=== PATIENT | male | born 1960 | race Caucasian/White ===

== ENCOUNTER 2017-04-15 11:02 | Observation (INO) | payer BC ==
[2017-04-15 12:11] LABS: C Reactive Protein 1.88 mg/L (< 5.00); Magnesium 2.2 mg/dL (1.9-2.7)
--- NOTE | 2017-04-15 12:42 | RAD ---
Indication: Chest pain. Single frontal view of the chest performed at 1159 hours was reviewed. No prior study is available for comparison. No mediastinal shift is noted. Heart is of normal size and configuration. Lung corona appear clear. IMPRESSION: NO ACTIVE CARDIOPULMONARY DISEASE IS NOTED.
[2017-04-15 12:56] LABS: Troponin I 0.01 ng/mL (<0.04)
[2017-04-15] MEDS ORDERED: Aspirin Low Dose CHEW TAB* 81 MG PO ONE (13:01)
[2017-04-15 13:05] LABS: Red Cell Distribution Width 13 % (10.5-15)
[2017-04-15 13:06] LABS: BUN/Creatinine Ratio 20.3 (8-20); Calcium 9.1 mg/dL (8.6-10.3); EGFR African American 77.7 (>60); EGFR Non-African American 60.4 (>60); Globulin 2.7 g/dL (2-4); Potassium 3.9 mmol/L (3.5-5.0); Total Bilirubin 0.6 mg/dL (0.2-1.0); Total Protein 6.7 g/dL (6.4-8.9)
[2017-04-15 13:09] LABS: Comments Flag Yes; Hematocrit 44 % (42-52); Hemoglobin 14.9 g/dl (14.0-18.0); Mean Corpuscular HGB Conc 34 g/dl (31-36); Mean Corpuscular Hemoglobin 30 pg (27-31); Mean Corpuscular Volume 88 fL (80-94); Mean Platelet Volume 9 um3 (7.4-10.4); Red Blood Count 4.95 10^6/ul (4.0-5.4); White Blood Count 10.2 10^3/ul (3.5-10.8)
[2017-04-15] MEDS ORDERED: Nitroglycerin TAB 0.4 MG* 0.4 MG TAB SL ONE (15:39)
[2017-04-15] MEDS ORDERED: Ondansetron INJ* 2 MG/ML VIAL IV PRN (17:18)
[2017-04-15] MEDS ORDERED: Acetaminophen TAB* 325 MG PO PRN (17:18)
[2017-04-15] MEDS ORDERED: Enoxaparin(*) 40 MG/0.4 ML SYR SUBCUT SCH (18:00)
--- NOTE | 2017-04-15 18:37 | ED ---
John Hays Benjamin, scribed for Colby Yu MD on 04/15/17 at 1136 . HPI Chest Pain - HPI Summary HPI Summary: 57yo male c/o mid sternal CP that started 2 hours ago. Pt woke up today around 330am and states CP started around 8-9am. Pain was 5/10 at its worse, but now its 2/10. Pt denies SOB, N/V, fever, or any recent illness. Hx of HLD, but denies GERD and heartburn. FHx of CAD. Pt states deep breath makes the CP better. Pt has biked for hours on Friday and Friday. - History of Current Complaint Chief Complaint: EDChestPainROMI Time Seen by Provider: 04/15/17 11:27 Hx Obtained From: Patient Onset/Duration: Started Hours Ago, Still Present Timing: Constant Initial Severity: Moderate - 5 Current Severity: Mild - 2 Pain Intensity: 2 Pain Scale Used: 0-10 Numeric Chest Pain Location: Mid Sternal Chest Pain Radiates: No Aggravating Factor(s): Nothing Alleviating Factor(s): Other: - deep breath Associated Signs and Symptoms: Positive: Negative. Negative: Numbness, Tingling , Shortness of Breath, Fever, Chills, Nausea, Cough, Vomiting - Allergy/Home Medications Allergies/Adverse Reactions: Allergies Allergy/AdvReac Type Severity Reaction Status Date / Time No Known Allergies Allergy Verified 07/11/13 13:08 PMH/Surg Hx/FS Hx/Imm Hx Endocrine/Hematology History: Denies: Hx Diabetes, Hx Thyroid Disease Cardiovascular History: Reports: Hx Hypercholesterolemia Denies: Hx Hypertension Respiratory History: Denies: Hx Asthma, Hx Chronic Obstructive Pulmonary Disease (COPD) GI History: Denies: Hx Ulcer Infectious Disease History: No Infectious Disease History: Denies: Hx Clostridium Difficile, Hx Hepatitis, Hx Human Immunodeficiency Virus (HIV), Hx of Known/Suspected MRSA, Hx Shingles, Hx Tuberculosis, Traveled Outside the [place] in Last 30 Days - Family History Known Family History: Negative: Cardiac Disease - Social History Occupation: Employed Full-time Lives: With Family Alcohol Use: Rare Substance Use Type: Reports: None Review of Systems Constitutional: Negative Negative: Fever Eyes: Negative ENT: Negative Positive: Chest Pain. Negative: Palpitations Respiratory: Negative Negative: Shortness Of Breath Gastrointestinal: Negative Negative: Abdominal Pain, Vomiting, Diarrhea, Nausea Genitourinary: Negative Musculoskeletal: Negative Skin: Negative Neurological: Negative Psychological: Normal All Other Systems Reviewed And Are Negative: Yes Physical Exam - Summary Physical Exam Summary: General: well-appearing, no pain distress Skin: warm, color reflects adequate perfusion, dry Head: normal Eyes: EOMI, RAZA ENT: normal Neck: supple, nontender Respiratory: CTA, breath sounds present Cardiovascular: RRR Abdomen: soft, nontender Bowel: present Musculoskeletal: normal, strength/ROM intact Neurological: normal, sensory/motor intact, A&O x3 Psychological: affect/mood appropriate Triage Information Reviewed: Yes Vital Signs On Initial Exam: Initial Vitals Temp Pulse Resp BP Pulse Ox 96.1 F 69 16 168/97 100 04/15/17 11:05 04/15/17 11:05 04/15/17 11:05 04/15/17 11:05 04/15/17 11:05 Vital Signs Reviewed: Yes Diagnostics - Vital Signs Vital Signs Temp Pulse Resp BP Pulse Ox 04/15/17 11:05 96.1 F 69 16 168/97 100 - Laboratory Lab Results: Lab Results 04/15/17 04/15/17 04/15/17 Range/Units 11:46 11:46 11:46 WBC (3.5-10.8) 10^3/ul RBC (4.0-5.4) 10^6/ul Hgb (14.0-18.0) g/dl Hct (42-52) % MCV (80-94) fL MCH (27-31) pg MCHC (31-36) g/dl RDW (10.5-15) % Plt Count (150-450) 10^3/ul MPV (7.4-10.4) um3 Neut % (Auto) (38-83) % Lymph % (Auto) (25-47) % Riley % (Auto) (1-9) % Eos % (Auto) (0-6) % Baso % (Auto) (0-2) % Absolute Neuts (auto) (1.5-7.7) 10^3/ul Absolute Lymphs (auto) (1.0-4.8) 10^3/ul Absolute Monos (auto) (0-0.8) 10^3/ul Absolute Eos (auto) (0-0.6) 10^3/ul Absolute Basos (auto) (0-0.2) 10^3/ul Absolute Nucleated RBC 10^3/ul Nucleated RBC % INR (Anticoag Therapy) 0.90 (0.77-1.02) D-Dimer, Quantitative < 200 (Less Than 230) ng/mL Sodium 135 (133-145) mmol/L Potassium 3.9 (3.5-5.0) mmol/L Chloride 102 (101-111) mmol/L Carbon Dioxide 26 (22-32) mmol/L Anion Gap 7 (2-11) mmol/L BUN 25 H (6-24) mg/dL Creatinine 1.23 H (0.67-1.17) mg/dL Est GFR ( Amer) 77.7 (>60) Est GFR (Non-Af Amer) 60.4 (>60) BUN/Creatinine Ratio 20.3 H (8-20) Glucose 88 (70-100) mg/dL Calcium 9.1 (8.6-10.3) mg/dL Magnesium 2.2 (1.9-2.7) mg/dL Total Bilirubin 0.60 (0.2-1.0) mg/dL AST 19 (13-39) U/L ALT 29 (7-52) U/L Alkaline Phosphatase 44 (34-104) U/L Total Creatine Kinase 148 (10-223) U/L CK-MB (CK-2) 4.5 (0.6-6.3) ng/mL Troponin I 0.01 (<0.04) ng/mL C-Reactive Protein 1.88 (< 5.00) mg/L B-Natriuretic Peptide 16 ( - 100) pg/mL Total Protein 6.7 (6.4-8.9) g/dL Albumin 4.0 (3.2-5.2) g/dL Globulin 2.7 (2-4) g/dL Albumin/Globulin Ratio 1.5 (1-3) Lipase (11.0-82.0) U/L 04/15/17 04/15/17 Range/Units 11:46 14:31 WBC 10.2 (3.5-10.8) 10^3/ul RBC 4.95 (4.0-5.4) 10^6/ul Hgb 14.9 (14.0-18.0) g/dl Hct 44 (42-52) % MCV 88 (80-94) fL MCH 30 (27-31) pg MCHC 34 (31-36) g/dl RDW 13 (10.5-15) % Plt Count 223 (150-450) 10^3/ul MPV 9 (7.4-10.4) um3 Neut % (Auto) 74.0 (38-83) % Lymph % (Auto) 15.8 L (25-47) % Riley % (Auto) 8.6 (1-9) % Eos % (Auto) 1.1 (0-6) % Baso % (Auto) 0.5 (0-2) % Absolute Neuts (auto) 7.5 (1.5-7.7) 10^3/ul Absolute Lymphs (auto) 1.6 (1.0-4.8) 10^3/ul Absolute Monos (auto) 0.9 H (0-0.8) 10^3/ul Absolute Eos (auto) 0.1 (0-0.6) 10^3/ul Absolute Basos (auto) 0.1 (0-0.2) 10^3/ul Absolute Nucleated RBC 0.01 10^3/ul Nucleated RBC % 0.1 INR (Anticoag Therapy) (0.77-1.02) D-Dimer, Quantitative (Less Than 230) ng/mL Sodium (133-145) mmol/L Potassium (3.5-5.0) mmol/L Chloride (101-111) mmol/L Carbon Dioxide (22-32) mmol/L Anion Gap (2-11) mmol/L BUN (6-24) mg/dL Creatinine (0.67-1.17) mg/dL Est GFR ( Amer) (>60) Est GFR (Non-Af Amer) (>60) BUN/Creatinine Ratio (8-20) Glucose (70-100) mg/dL Calcium (8.6-10.3) mg/dL Magnesium (1.9-2.7) mg/dL Total Bilirubin (0.2-1.0) mg/dL AST (13-39) U/L ALT (7-52) U/L Alkaline Phosphatase (34-104) U/L Total Creatine Kinase (10-223) U/L CK-MB (CK-2) (0.6-6.3) ng/mL Troponin I 0.00 (<0.04) ng/mL C-Reactive Protein (< 5.00) mg/L B-Natriuretic Peptide ( - 100) pg/mL Total Protein (6.4-8.9) g/dL Albumin (3.2-5.2) g/dL Globulin (2-4) g/dL Albumin/Globulin Ratio (1-3) Lipase 18 (11.0-82.0) U/L Result Diagrams: 04/15/17 11:46 04/15/17 11:46 Lab Statement: Any lab studies that have been ordered have been reviewed, and results considered in the medical decision making process. - Radiology CXR Xray Interpretation: No Acute Changes Radiology Interpretation Completed By: Radiologist - ED physician has reviewed this radiology report and agrees. - EKG 1111. Cardiac Rate: NL EKG Rhythm: Sinus Rhythm - 64bpm Ectopy: None EKG Interpretation: minimal ST Elevation in anterior leads, concaved up. - Additional Comments Diagnostic Additional Comments: EKG 2 - 13:08 - NSR @ [address] elevation in anterior leads. T wave taller than previous EKG. 1/[address] elevation in lead II, not on prior EKG. No ectopy. Chest Pain Course/Dx - Course Course Of Treatment: BP noted and advised to follow up with PCP. Allergies noted. Medications reviewed. DISCUSSED RESULTS WITH DR YOUNG AND PATIENT. DR YOUNG RECOMMENDS ADMISSION. ADMIT HOSPITALIST. CRITICAL CARE TIME LESS THAN 30 MINUTES. - Diagnoses Provider Diagnoses: Chest pain Discharge - Discharge Plan Condition: Stable Disposition: ADMITTED TO [facility] documentation as recorded by the John sneed Benjamin accurately reflects the service I personally performed and the decisions made by me, Colby Yu MD.
[2017-04-15] MEDS: Omeprazole CAP* 20 MG PO SCH (20:50)
[2017-04-15] MEDS: NS 0.9% 1000 ML* 1,000 ML IV SCH (20:53)
--- NOTE | 2017-04-15 21:57 | HP ---
CC: Dr. Jones * ADMISSION HISTORY AND PHYSICAL: DATE OF ADMISSION: 04/15/17. PRIMARY CARE PROVIDER: Dr. Jones. ADMITTING PROVIDER: ROSA Degroot. SUPERVISING PHYSICIAN: Dr. Nestor Leonard * (DICTATED BY ROSA DEGROOT) CHIEF COMPLAINT: Chest pain. HISTORY OF PRESENT ILLNESS: This is an otherwise healthy 57-year-old gentleman , who presented to the emergency department with complaints of chest pain. The patient states that the pain started approximately 2 hours prior to presentation , which was approximately 9 am this morning. 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 Pain has been mid sternal and constant since onset. He has no history of similar symptoms. He does report that he injured his back approximately a week ago and has been taking more frequent ibuprofen. He denies any associated nausea or vomiting. No radiation of the pain, no associated shortness of breath. He notes may be some mild increase in pain if he takes a deep breath and the pain increases if he stands upright. He denies any recent illness. No fevers. No associated diaphoresis. No cough or shortness of breath. He received aspirin and nitroglycerin in the emergency department and noted no improvement in his chest pain with nitroglycerin. Two troponins in the emergency department have been negative and his pain remains persistent. He does have some subtle ST-segment changes on EKG, however, without an old EKG available for comparison. PAST MEDICAL HISTORY: None. PAST SURGICAL HISTORY: None. HOME MEDICATIONS: Ibuprofen as needed for pain. SOCIAL HISTORY: The patient is employed as a surgery technician. He has no history of smoking. He consumes approximately 2 beers weekly and lives at home with his . REVIEW OF SYSTEMS: As noted above in HPI. All other systems reviewed and considered negative. PHYSICAL EXAMINATION GENERAL: This is a relatively well-appearing, middle-aged gentleman in no acute distress, and accompanied by his . VITAL SIGNS: Temperature 96.1 degrees Fahrenheit, pulse 69 beats per minute, respiratory rate 16, oxygen saturation 100% on room air, blood pressure 168/97 mmHg. HEENT: Head is normocephalic, atraumatic. Mucous membranes are pink and moist. RESPIRATORY: Lungs are clear to auscultation without wheezes, crackles, or rhonchi. CARDIOVASCULAR: Heart has a regular rate and rhythm without murmurs, rubs, or gallops. CHEST: No reproduction of his pain with palpation and pain is not exacerbated with sitting forward. ABDOMEN: Soft, and nontender to palpation. EXTREMITIES: No edema. SKIN: No concerning rashes or lesions. LABORATORY EVALUATION: CBC shows a white blood cell count of 10,200, hemoglobin of 14.9 g/dL, and a platelet count of 223,000. D-dimer is negative, listed at less than 200. Comprehensive metabolic panel shows a sodium of 135 mmol/L, potassium 3.9, BUN of 25, creatinine of 1.23, random glucose of 88 mg/ dL. Transaminases and total bilirubin were within normal limits. Troponin negative x2. CRP normal at 1.8. IMAGING: EKG shows a sinus rhythm with some subtle ST-segment elevation in inferior leads, repeat EKG shows ST-segments to be slightly more dramatic. Chest x-ray shows no acute process. ASSESSMENT AND PLAN: This is an otherwise healthy 57-year-old gentleman, who presents with complaints of chest pain. His pain is persistent with negative troponins, but subtle ST-segment elevation appreciated on EKG. The patient will be admitted to observation for further monitoring and stress testing. 1. Chest pain: The patient's pain is constant, not relieved by nitroglycerin and no elevation of troponin despite constant symptoms, making this less likely to be cardiac. Could consider this to be GI as he has recently been taking more NSAIDs but seems to be rather sudden onset without associated nausea or vomiting. D-dimer is negative. We will plan to admit with one additional troponin pending. We will obtain a fasting lipid panel in the morning and stress testing. Also of note, CRP is normal making pericarditis unlikely nor does he give a history of recent illness that would fit that or any medications that may induce it. We will add on a lipase based on the location of his pain, but he has no other associated GI symptoms making pancreatitis quite unlikely. 2. Acute kidney injury: The patient does have a mildly elevated BUN and creatinine. Unsure of the acuity of this, but he did receive a liter of fluids in the emergency department and we will plan on repeating basic metabolic panel in the morning. 3. Code status: The patient is full code. 4. Healthcare proxy is his . 5. DVT prophylaxis: The patient will be placed on subcu Lovenox. DISPOSITION: The patient is being admitted to observation status with anticipated discharge tomorrow. ROSA DEGROOT [id number]/[facility] #: [id number] MTDVahe
[2017-04-16] MEDS: NS 0.9% 1000 ML* 1,000 ML IV SCH (03:52)
[2017-04-16 07:06] LABS: BUN/Creatinine Ratio 16.9 (8-20); EGFR African American 81.5 (>60); EGFR Non-African American 63.4 (>60); HDL Cholesterol 55.1 mg/dL
[2017-04-16 08:26] VITALS: BP 124/77
[2017-04-16] MEDS ORDERED: Aspirin EC Low Dose* 81 MG TAB.EC PO SCH (09:00)
[2017-04-16] MEDS: Omeprazole CAP* 20 MG PO SCH (11:35)
--- NOTE | 2017-04-16 12:28 | RAD ---
INDICATION: Chest pain, elevated cholesterol. COMPARISON: No relevant prior exams available on the [facility] PACS for comparison. TECHNIQUE: 10.040 mCi of Tc-99m Myoview were administered IV. SPECT images of the heart were obtained. Later on the same day. Under the direction of Dr. Muller, an exercise stress test was performed. The patient achieved a peak heart rate of 174 bpm, 107 % of the age-predicted maximum. Subsequently, the patient was given an IV injection of 25.800 mCi Tc-99m Myoview. SPECT images of the heart were obtained and a gated wall motion study was performed. FINDINGS: Gated wall motion images were obtained at stress and demonstrate hypokinesia at the septum. LEFT ventricular motion at the apex, anterior wall, lateral wall, and inferior wall appears normal. The calculated left ventricular ejection fraction is 66 % at stress. Estimated LEFT ventricular end diastolic volume is 79 mL. TID 0.82. Mild diaphragmatic attenuation noted on the nonattenuation corrected series. Based on review of the attenuation corrected and non corrected images the distribution of radiopharmaceutical within the myocardium on the stress and rest images is within normal limits. No compelling fixed or reversible regions of hypoperfusion evident. IMPRESSION: 1. No evidence for stress-induced ischemia or presence of an infarct. 2. Suggestion of hypokinesia at the septum. Nonetheless LEFT ventricular ejection fraction is normal. Correlate with clinical assessment and consider echocardiography to further assess septal wall motion if deemed appropriate. ASSESSMENT: Low risk based on the nuclear portion. Based on imaging criteria from ACC/AHA 2002 Guideline Update for the Management of Patients With Chronic Stable Angina Table 23. Noninvasive Risk Stratification.
[2017-04-16] MEDS ORDERED: Atorvastatin* 40 MG TAB PO SCH (17:00)
--- NOTE | 2017-04-22 13:41 | DS ---
CC: Dr. Jones * DATE OF ADMISSION: 04/15/2017. DATE OF DISCHARGE: 04/16/2017. PRIMARY CARE PHYSICIAN: Dr. Jones. DISCHARGING PROVIDER: ROSA Degroot. SUPERVISING PHYSICIAN: Dr. Evelyn Bartlett * (dictated by ROSA Degroot). PRIMARY DISCHARGE DIAGNOSES: 1. Chest pain - noncardiac. 2. Hyperlipidemia with an LDL of 144. SECONDARY DISCHARGE DIAGNOSES: None. HOME MEDICATIONS: Ibuprofen 600 mg p.o. q.6 hours as needed for pain with instructions to use sparingly. Medication changes: None. HOSPITAL IMAGIN. Chest x-ray shows no acute process. 2. Nuclear stress test is read as a low risk study with an EF of 61 percent with exercise. No evidence of any perfusion defects. 3. EKG shows a sinus rhythm with subtle ST elevation in leads 2, 3, and AVF. HOSPITAL COURSE: This is an otherwise healthy, 57-year-old gentleman who presented to the emergency department with complaints of chest pain. The patient's symptoms had started suddenly at approximately 9 o'clock the morning of admission while he was seated at his desk at work. He was not performing any physical activity at the time and denies any associated emotional stress. His symptoms were persistent for at least 12 hours where he described mid sternal but relatively mild pain that did not radiate and is not associated with nausea, vomiting, or diaphoresis. His exam was benign and initial troponin negative, but his EKG showed some subtle ST segment changes. The patient was subsequently admitted to the hospital for a period of observation. He was maintained on continuous telemetry monitoring which was benign. Serial troponins remained negative. Repeat EKG showed persistent ST segment abnormality. The patient underwent a nuclear stress test which was benign. The patient's chest pain resolved spontaneously. When he awoke the morning of discharge, his symptoms were gone and were not reproduced with activity. The only potential provoking factor was patient did express some recent increase in NSAID use as his back was bothering him, but he was nontender in the epigastric region on palpation. A lipase was checked as well and this was also noted to be negative. Fasting lipid panel was ordered and reviewed during his hospitalization which showed a total cholesterol of 223 mg/dl with an LDL of 144. Statin was not empirically initiated after negative stress test was noted. DISPOSITION AND FOLLOW-UP PLAN: The patient is being discharged to home. No changes to his home medications, suggested a two week period of PPI utilization which he declined. I do recommend that he follow-up with his primary care provider regarding this hospitalization and regarding cholesterol management. He does not have any significant risk factors for cardiac disease so statin was not initiated at the time of discharge. ROSA DEGROOT [id number]/[facility] #: [id number] ROXIE
== END 2017-04-16 14:15 | disposition home or self-care (01) ==
LOC: ED 11:02 → MEDTELE 17:01
PROVIDERS: ADMIT Internal Medicine; ATTEND Internal Medicine
DX: R07.89 Other chest pain (principal); E78.5 Hyperlipidemia, unspecified; R94.31 Abnormal electrocardiogram [ECG] [EKG]; R94.4 Abnormal results of kidney function studies
CPT/HCPCS: 36415; 71010; 80048; 80053; 80061; 82550; 82553; 83690; 83735; 83880; 84484; 85025; 85379; 85610; 86140; 93005; 96361; 96374; 99284; A9270-GY; G0378; J1650